=== PATIENT | male | born 1960 | race American Indian/Alaskan Native ===

== ENCOUNTER 2020-05-04 13:55 | Emergency (ER) | payer BC ==
[2020-05-04 14:55] VITALS: BP 193/107
--- NOTE | 2020-05-04 15:16 | Emergency Department Report ---
ED General Adult HPI - General Chief complaint: High BP Stated complaint: BP HIGH Source: patient Mode of arrival: Ambulatory Limitations: No Limitations - History of Present Illness Initial comments: 59-year-old -[place] male presents to the emergency room for elevated blood pressure. Patient states that he is currently being followed by a chiropractor and it was noted that his blood pressure was elevated. Patient does admit that he has a history of hypertension but has not taken his medication in over a year. Patient states that he started having headaches took his medication improved. Patient blood pressure medication that he brings in are but is hydrochlorothiazide 12.5 mg and metoprolol 25 mg. Onset/Timin -: week(s) Severity scale (0 -10): 0 Improves with: none Worsens with: none Associated Symptoms: denies other symptoms - Related Data Previous Rx's Medication Instructions Recorded Last Taken Type amLODIPine 5 mg PO DAILY #30 tab 05/04/20 Unknown Rx Allergies Allergy/AdvReac Type Severity Reaction Status Date / Time No Known Allergies Allergy Verified 05/04/20 14:49 ED Review of Systems ROS: Stated complaint: BP HIGH Other details as noted in HPI Comment: All other systems reviewed and negative ED Past Medical Hx - Past Medical History Hx Hypertension: Yes - Surgical History Additional Surgical History: CYST ON LEG - Medications Home Medications: Home Medications Medication Instructions Recorded Confirmed Last Taken Type amLODIPine 5 mg PO DAILY #30 tab 05/04/20 Unknown Rx ED Physical Exam - General Limitations: No Limitations General appearance: alert, in no apparent distress - Head Head exam: Present: atraumatic, normocephalic - Eye Eye exam: Present: normal appearance - ENT ENT exam: Present: mucous membranes moist - Neck Neck exam: Present: normal inspection - Respiratory Respiratory exam: Present: normal lung sounds bilaterally. Absent: respiratory distress - Cardiovascular Cardiovascular Exam: Present: regular rate, normal rhythm. Absent: systolic murmur, diastolic murmur, rubs, gallop - GI/Abdominal GI/Abdominal exam: Present: soft, normal bowel sounds - Rectal Rectal exam: Present: deferred - Extremities Exam Extremities exam: Present: normal inspection - Back Exam Back exam: Present: normal inspection - Neurological Exam Neurological exam: Present: alert, oriented X3 - Psychiatric Psychiatric exam: Present: normal affect, normal mood - Skin Skin exam: Present: warm, dry, intact, normal color. Absent: rash ED Course Vital Signs 05/04/20 14:54 Temperature 98.5 F Pulse Rate 79 Respiratory 18 Rate Blood Pressure 193/107 [Right] O2 Sat by Pulse 97 Oximetry ED Medical Decision Making - Medical Decision Making 59-year-old -[place] male presents to the emergency room for elevated blood pressure. Patient states that he is currently being followed by a chiropractor and it was noted that his blood pressure was elevated. Patient does admit that he has a history of hypertension but has not taken his medication in over a year. Patient states that he started having headaches took his medication improved. Patient blood pressure medication that he brings in are but is hydrochlorothiazide 12.5 mg and metoprolol 25 mg. Hypertension we will start patient on amlodipine 5 mg daily. Critical care attestation.: If time is entered above; I have spent that time in minutes in the direct care of this critically ill patient, excluding procedure time. ED Disposition Clinical Impression: Hypertension not at goal Disposition: DC-01 TO HOME OR SELFCARE Is pt being admited?: No Does the pt Need Aspirin: No Condition: Stable Instructions: Hypertension (ED), Preventing Hypertension, Hypertension, Adult, [id number] Additional Instructions: Take medications as prescribed. Keep a blood pressure log and follow-up with your primary care provider. Prescriptions: amLODIPine 5 mg PO DAILY #30 tab Referrals: [facility] [Provider Group] - 3-5 Days Forms: Work/School Release Form(ED)
== END 2020-05-04 15:55 | disposition home or self-care (01) ==
LOC: ED 13:55
DX: I10 Essential (primary) hypertension (principal); Z98.890 Other specified postprocedural states; Z79.899 Other long term (current) drug therapy
CPT/HCPCS: 99281